=== PATIENT | male | born 1960 | race Two or more races ===

== ENCOUNTER 2025-05-23 11:09 | Inpatient (IN) | payer MEDICARE, BC ==
[~2025-05-23] VITALS: Ht 175.3 cm; Wt 103.6 kg
[2025-05-23 11:12] VITALS: O2SAT 98
[2025-05-23 12:23] LABS: BASOPHILS % 0.2 % (0.0-2.0); EOSINOPHILS % 0.1 % (0.0-5.0); HEMATOCRIT. 35.8 % (42.0-52.0); HEMOGLOBIN. 12.3 g/dL (14.0-18.0); LYMPHOCYTES % 10.5 % (20.0-50.0); MEAN PLATELET VOLUME 8.9 fl (7.4-10.4); MONOCYTES % 10.9 % (2.0-8.0); NEUTROPHILS % 78.3 % (40.0-76.0); PLATELET 162 x1000/uL (130-400); RED BLOOD CELL COUNT 4.00 mill/uL (4.7-6.1); RED CELL DISTRIBUTION WIDTH 13.7 % (11.6-14.6)
[2025-05-23 12:43] LABS: CREATININE 1.5 mg/dL (0.6-1.3); UREA NITROGEN BLOOD 15 mg/dL (9-23)
[2025-05-23 12:44] LABS: TROPONIN I HIGH SENSITIVITY 4 ng/L (3.0-53)
[2025-05-23] MEDS ORDERED: GUAIFENESIN 200MG/10ML SUGAR FREE UDC PO PRN ×2 (14:00)
[2025-05-23] MEDS ORDERED: CLONIDINE 0.1MG TABLET PO PRN (14:00)
[2025-05-23] MEDS ORDERED: IPRATROPIUM/ALBUTEROL 0.5-3(2.5)MG/3ML NEB HHN PRN ×2 (14:00)
[2025-05-23] MEDS ORDERED: ONDANSETRON HCL 4MG/2ML INJ IV PRN ×2 (14:00)
[2025-05-23] MEDS ORDERED: DOCUSATE SODIUM 100MG CAPSULE PO PRN ×2 (14:00)
[2025-05-23] MEDS ORDERED: ACETAMINOPHEN 325MG TABLET PO PRN ×4 (14:00)
[2025-05-23 14:30] VITALS: O2SAT 100
[2025-05-23] MEDS: POTASSIUM CHLORIDE 20MEQ TABLET SR PO SCH (14:30)
[2025-05-23] MEDS ORDERED: ENOXAPARIN 40MG/0.4ML SYR SUBCUT SCH (15:00)
[2025-05-23] MEDS: CLONIDINE 0.1MG TABLET PO PRN (15:12)
[2025-05-23 16:11] LABS: PHOSPHORUS 2.5 mg/dL (2.5-4.9)
[2025-05-23 16:14] LABS: FOLIC ACID (FOLATE) SERUM 17.21 ng/mL (>5.38); VITAMIN B12 SERUM 418 pg/mL (211-911)
[2025-05-23 17:53] VITALS: BP 142/91; PULSE 88; RESP 18; TEMP 36.5848
[2025-05-23] MEDS: ENOXAPARIN 40MG/0.4ML SYR SUBCUT SCH (18:22)
[2025-05-23] MEDS ORDERED: GABA-529 MT (18:26)
[2025-05-23] MEDS ORDERED: AMLODIPINE 5MG TABLET PO SCH (21:00)
[2025-05-24] MEDS ORDERED: PANTOPRAZOLE SODIUM 40 MG/VIAL IV SCH (09:00)
[2025-05-24] MEDS ORDERED: ASPIRIN 81MG EC TABLET PO SCH (09:00)
[2025-05-24] MEDS ORDERED: LOSARTAN 50 MG TABLET PO SCH (09:00)
== END 2025-05-23 19:45 | disposition left against medical advice (07) | DRG 312 ==
LOC: ER 11:09 → 8WST 13:20 → EDBEDREQ 13:24 → EDBEDREQTM 13:24 → ENRESERV 15:06
PROVIDERS: ADMIT Internal Medicine; ATTEND Internal Medicine
DX: R55 Syncope and collapse (principal); C79.51 Secondary malignant neoplasm of bone; N17.9 Acute kidney failure, unspecified; R00.0 Tachycardia, unspecified; I11.9 Hypertensive heart disease without heart failure; E87.6 Hypokalemia; Z53.29 Procedure and treatment not carried out because of patient's decision for other reasons; S00.81XA Abrasion of other part of head, initial encounter; X58.XXXA Exposure to other specified factors, initial encounter; Y93.89 Activity, other specified; Y92.89 Other specified places as the place of occurrence of the external cause; Y99.8 Other external cause status; Z85.46 Personal history of malignant neoplasm of prostate; Z92.21 Personal history of antineoplastic chemotherapy; Z79.82 Long term (current) use of aspirin
CPT/HCPCS: 36415; 71045; 76770; 80048; 82607; 82746; 83540; 83550; 84100; 84484; 85025; 93005; 99285; A4606; J1650